=== PATIENT | female | born 1975 | race Two or more races ===

== ENCOUNTER 2019-08-26 12:08 | Day surgery (SDC) | payer BC ==
[2019-08-24 12:56] LABS: Basophils # (auto) 0.1 uL; Basophils % (auto) 1.3 % (0.0-2.0); Eosinophils # (auto) 0.2 uL; Eosinophils % (auto) 1.9 % (0.0-7.0); Hematocrit 41.4 % (36.0-46.0); Hemoglobin 14.2 g/dL (12.2-16.2); Lymphocytes # (auto) 1.2 uL; Lymphocytes % (auto) 14.6 % (10.0-50.0); Mean Corpuscular Hemoglobin 30.3 pg (28.0-32.0); Mean Corpuscular Hgb Conc. 34.3 g/dL (32.0-36.0); Mean Corpuscular Volume 88.4 fL (80.0-100.0); Monocytes # (auto) 0.6 uL; Monocytes % (auto) 7.2 % (0.0-12.0); Neutrophils # (auto) 6.2 uL; Platelet Count (auto) 278 10^3/uL (140-450); Red Blood Cells 4.68 10^6/uL (4.0-5.20); Red Cell Distribution Width 14.1 % (11.8-14.3); White Blood Cell 8.2 10^3/uL (4.4-10.8)
[2019-08-24 13:00] LABS: Urine Bacteria NONE SEEN /hpf (None Seen); Urine Blood 1+ /uL (Negative); Urine Mucus FEW (None Seen); Urine Specific Gravity 1.021 (1.001-1.035); Urine WBC 1 /hpf (0 - 5)
[2019-08-24 13:12] LABS: INR 0.95 (0.9-1.15); Partial Thromboplastin Time 27.9 sec (23.64-32.05)
[2019-08-24 13:28] LABS: Albumin 3.8 g/dL (3.4-5.0); BUN/Creatinine Ratio 22.9; Calcium 8.8 mg/dL (8.5-10.1); Potassium 3.8 mmol/L (3.5-5.1)
[2019-08-24 13:31] LABS: Bilirubin, Total 0.7 mg/dL (0.2-1.0); Total Protein 7.3 g/dL (6.4-8.2)
[~2019-08-26] VITALS: Ht 157.5 cm; Wt 69.4 kg
[~2019-08-26 12:08] MED LIST: SUMA100T15 PO
[2019-08-26] MEDS ORDERED: MORPHINE SULFATE 4 MG/ML SYR/VIAL IV PRN (13:30)
[2019-08-26] MEDS ORDERED: KETOROLAC TROMETH 30 MG/ML 1ML VIAL IV ONE (13:30)
[2019-08-26] MEDS ORDERED: LABETALOL HCL 5 MG/ML 4ML SYRINGE IV PRN (13:30)
[2019-08-26] MEDS ORDERED: ePHEDrine SULFATE 50 MG/ML AMP IV PRN (13:30)
[2019-08-26] MEDS ORDERED: HYDROmorphone HCL 2 MG/ML VL IV PRN (13:30)
[2019-08-26] MEDS ORDERED: MIDAZOLAM HCL 1MG/1ML-2 ML VIAL IV PRN (13:30)
[2019-08-26] MEDS ORDERED: ONDANSETRON HCL 4 MG/2 ML VIAL IV PRN (13:30)
[2019-08-26] MEDS ORDERED: CLINDAMYCIN 600MG IV 50 ML IV ONE (13:33)
[2019-08-26] MEDS ORDERED: MEPERIDINE HCL (25 MG/ML) 1ML VIAL ONE (13:37)
[2019-08-26] MEDS ORDERED: MIDAZOLAM HCL 1MG/1ML-2 ML VIAL ONE (13:38)
[2019-08-26] MEDS ORDERED: fentaNYL CITRATE 100 MCG/2 ML VL ONE (13:38)
[2019-08-26] MEDS ORDERED: PROPOFOL 10 MG/ML 20 ML IV ONE (14:01)
[2019-08-26] MEDS ORDERED: DexAMETHasone SOD PHOS 10MG/1ML VIAL INJ ONE (14:01)
[2019-08-26 14:56] VITALS: BP 120/73
== END 2019-08-26 15:10 | disposition home or self-care (01) ==
LOC: SUR 12:08
PROVIDERS: ATTEND Obstetrics & Gynecology
DX: N92.5 Other specified irregular menstruation (principal); N87.0 Mild cervical dysplasia; G43.909 Migraine, unspecified, not intractable, without status migrainosus; D64.9 Anemia, unspecified; Z79.899 Other long term (current) drug therapy
CPT/HCPCS: 36415; 58563; 80053; 81001; 84702; 85025; 85610; 85730; 86850; 86900; 86901; 87086; 87088; 87186; 88305; J1100; J2175; J2250; J2704; J3010; J3490

== ENCOUNTER 2020-06-05 06:37 | Inpatient (IN) | payer BC ==
[2020-05-31 11:51] LABS: Urine WBC None Seen /hpf (0 - 5)
[2020-05-31 11:58] LABS: Basophils # (auto) 0.1 10 ^3/uL (0-0.2); Basophils % (auto) 1.3 % (0.0-2.0); Eosinophils # (auto) 0.1 10 ^3/uL (0-0.8); Eosinophils % (auto) 2.3 % (0.0-7.0); Hematocrit 43.1 % (36.0-46.0); Hemoglobin 14.5 g/dL (12.2-16.2); Lymphocytes # (auto) 1.3 10 ^3/uL (0.4-5.4); Lymphocytes % (auto) 20.3 % (10.0-50.0); Mean Corpuscular Hemoglobin 29.8 pg (28.0-32.0); Mean Corpuscular Hgb Conc. 33.5 g/dL (32.0-36.0); Mean Corpuscular Volume 88.9 fL (80.0-100.0); Monocytes # (auto) 0.4 10 ^3/uL (0-1.3); Monocytes % (auto) 6.7 % (0.0-12.0); Neutrophils # (auto) 4.5 10 ^3/uL (1.6-8.6); Neutrophils % (auto) 69.4 % (37.0-80.0); Platelet Count (auto) 294 10^3/uL (140-450); Red Blood Cells 4.85 10^6/uL (4.0-5.20); Red Cell Distribution Width 14.3 % (11.8-14.3); White Blood Cell 6.5 10^3/uL (4.4-10.8)
[2020-05-31 12:02] LABS: Urine Bacteria NONE SEEN /hpf (None Seen); Urine Blood Negative /uL (Negative); Urine Specific Gravity 1.023 (1.001-1.035)
[2020-05-31 12:19] LABS: INR 0.96 (0.9-1.15)
[2020-05-31 12:50] LABS: Albumin 3.9 g/dL (3.4-5.0); Calcium 8.8 mg/dL (8.5-10.1); Potassium 3.9 mmol/L (3.5-5.1)
[2020-05-31 12:53] LABS: BUN/Creatinine Ratio 43.8; Bilirubin, Total 0.4 mg/dL (0.2-1.0); Total Protein 7.5 g/dL (6.4-8.2)
[~2020-06-05] VITALS: Ht 157.5 cm; Wt 76.5 kg
[2020-06-05] MEDS ORDERED: SUCCINYLCHOLINE CHLORIDE 20 MG/ML 10ML VIAL IV ONE (07:08)
[2020-06-05] MEDS ORDERED: LIDOCAINE 1% HCL (LOCAL ANESTH.) INJ 20ML MDV ONE (07:08)
[2020-06-05] MEDS ORDERED: fentaNYL CITRATE 100 MCG/2 ML VL ONE (07:21)
[2020-06-05] MEDS ORDERED: MIDAZOLAM HCL 1MG/1ML-2 ML VIAL ONE (07:21)
[2020-06-05] MEDS ORDERED: GLYCOPYRROLATE 0.2 MG/ML 1ML VIAL ONE (07:21)
[2020-06-05] MEDS ORDERED: PROPOFOL 10 MG/ML 20 ML IV ONE (07:21)
[2020-06-05] MEDS ORDERED: NEOSTIGMINE 1 MG/ML INJ (10mg/10ML VIAL) ONE (07:21)
[2020-06-05] MEDS ORDERED: hydrALAZINE HCL 20 MG/ML VL ONE (07:21)
[2020-06-05] MEDS ORDERED: KETOROLAC TROMETH 60MG/2ML VIAL ONE (07:21)
[2020-06-05] MEDS ORDERED: fentaNYL CITRATE 5 ML ONE (07:21)
[2020-06-05] MEDS ORDERED: HYDROmorphone HCL 2 MG/ML VL ONE ×2 (07:21→12:33)
[2020-06-05] MEDS ORDERED: ONDANSETRON HCL 4 MG/2 ML VIAL ONE (07:21)
[2020-06-05] MEDS ORDERED: SODIUM CHLORIDE LOCK 10 ML ONE (07:21)
[2020-06-05] MEDS ORDERED: LIDOCAINE W/ EPINEPHRINE 1 % INJ 30ML ONE (07:29)
[2020-06-05] MEDS ORDERED: BUPIVACAINE 0.25% INJ 50ML VIAL ONE (07:29)
[2020-06-05] MEDS ORDERED: METHYLENE BLUE 0.5% 5MG/ML 10ml AMP IV ONE (07:29)
[2020-06-05] MEDS ORDERED: ceFAZolin 1GM/50ML 50 ML IV ONE ×2 (07:32→08:00)
[2020-06-05] MEDS ORDERED: NITROGLYCERIN 0.4 MG SL TAB SL PRN (08:00)
[2020-06-05] MEDS ORDERED: MORPHINE SULF INJ 2 MG/ML SYRINGE 1ML IV PRN (08:00)
[2020-06-05] MEDS ORDERED: METOCLOPRAMIDE HCL 5MG/ml INJ 2ml VIAL IV PRN (08:00)
[2020-06-05] MEDS ORDERED: ONDANSETRON HCL 4 MG/2 ML VIAL IV PRN (08:00)
[2020-06-05] MEDS ORDERED: ACETAMINOPHEN 500 MG TAB PO PRN (08:00)
[2020-06-05] MEDS ORDERED: fentaNYL CITRATE 100 MCG/2 ML VL IV PRN (08:00)
[2020-06-05] MEDS ORDERED: KETOROLAC TROMETH 30 MG/ML 1ML VIAL IV ONE (08:00)
[2020-06-05] MEDS ORDERED: MORPHINE SULFATE 4 MG/ML SYR/VIAL IV PRN ×2 (08:00)
[2020-06-05] MEDS: SODIUM CHLORIDE 0.9% 1,000 ML IV SCH ×3 (11:30→23:51)
[2020-06-05] MEDS: HYDROmorphone HCL 2 MG/ML VL IV PRN ×2 (12:35→14:36)
--- NOTE | 2020-06-05 15:13 | NUR ---
[facility] admit from ER MARIA HENDERSON admitted to [facility] after SBAR received. Patient oriented to Gilma Michaud primary RN, unit, room, bed, and unit policies regarding patient care and visiting hours. Patient weighed by bed scale. Instructed patient on POC, fall precautions and to call for assistance as needed. Patient verbalized understanding. Abdominal binder in place per MD order. (x5) dressings in place. (x3) drainage outlined. Fall precautions in place with call light within reach.
--- NOTE | 2020-06-05 15:30 | NUR ---
SCD's in place per MD order.
--- NOTE | 2020-06-05 15:30 | NUR ---
Incentive Spirometer placed at bedside Education on proper use provided. Patient verbalized understanding. Patient able to demonstrate proper use of IS.
[2020-06-05 16:09] VITALS: BP 119/77
[2020-06-05] MEDS: HYDROcodone-ACET 10/325MG TAB PO PRN ×2 (18:02→23:54)
--- NOTE | 2020-06-05 18:38 | NUR ---
Closing note Patient resting in bed with even and unlabored respirations, no distress noted. Fall precautions in place with call light within reach.
--- NOTE | 2020-06-05 19:12 | NUR ---
Care endorsed to JORDY Enamorado.
--- NOTE | 2020-06-05 19:30 | NUR ---
Opening Shift Note Assumed care of patient, awake and alert. No S/S of distress/SOB. Minimal vaginal bleeding noted. Pt instructed to notify this RN if excessive bleeding or large clots occur. Pt verbalized understanding. Safety measures in place, bed in lowest position, bed rails raised x2, call light within reach, guard at bedside. Instructed on POC and to call for assist PRN, will continue to monitor for changes Q1hr and PRN.
[2020-06-05 22:00] VITALS: BP 137/82
--- NOTE | 2020-06-05 22:20 | NUR ---
Pt requesting to ambulate. Pt assisted out of bed and into hallway, no S/S of dizziness, bleeding or pain noted. Pt states that she feels stable enough to walk. This RN walked with pt around nurses station twice to assure safety. Pt requesting to continue ambulating. Pt instructed to call out if feeling dizzy or fatigued while ambulating. Pt verbalized understanding. Pt encouraged to ambulate as much as tolerated. Will continue to monitor.
[2020-06-06 00:27] VITALS: BP 129/82
[2020-06-06 05:00] VITALS: BP 127/77
[2020-06-06] MEDS: SODIUM CHLORIDE 0.9% 1,000 ML IV SCH ×2 (07:51→15:51)
[2020-06-06 08:00] VITALS: BP 129/82
[2020-06-06 09:00] VITALS: BP 129/82
[2020-06-06 13:00] VITALS: BP_SYST 112; BP_SYST 133; BP_DIAS 72; BP_DIAS 85
--- NOTE | 2020-06-06 16:15 | NUR ---
Discharge instructions given as ordered. Encourage to follow up with PMD as instructed on Jun 20 @ 10:45AM. All questions and concerns addressed. Patient verbalized understanding. Medication reconciliation form completed and copy given to patient. No home medications held in Pharmacy, and no needed vaccines given, patient declined. IV removed with catheter intact and pressure dressing applied. Patient medications already filled and at home. Patient taken to vehicle via wheelchair with all personal belongings, accompanied by staff member. No distress noted at time of departure.
== END 2020-06-06 16:15 | disposition home or self-care (01) | DRG 743 ==
LOC: SUR 06:37 → CENTRAL 15:22
PROVIDERS: ADMIT Obstetrics & Gynecology; ATTEND Obstetrics & Gynecology
PROC: 0UT74ZZ Resection of Bilateral Fallopian Tubes, Percutaneous Endoscopic Approach (ICD-10-PCS; 2020-06-05)
PROC: 0UT24ZZ Resection of Bilateral Ovaries, Percutaneous Endoscopic Approach (ICD-10-PCS; 2020-06-05)
PROC: 0USG4ZZ Reposition Vagina, Percutaneous Endoscopic Approach (ICD-10-PCS; 2020-06-05)
PROC: 8E0W4CZ Robotic Assisted Procedure of Trunk Region, Percutaneous Endoscopic Approach (ICD-10-PCS; 2020-06-05)
PROC: 0UT94ZL Resection of Uterus, Supracervical, Percutaneous Endoscopic Approach (ICD-10-PCS; principal; 2020-06-05 08:20)
DX: N81.4 Uterovaginal prolapse, unspecified (principal); N80.0 Endometriosis of uterus; N73.6 Female pelvic peritoneal adhesions (postinfective); E66.9 Obesity, unspecified; Z20.828 Contact with and (suspected) exposure to other viral communicable diseases; Z88.2 Allergy status to sulfonamides; Z88.8 Allergy status to other drugs, medicaments and biological substances; Z68.29 Body mass index [BMI] 29.0-29.9, adult; Z79.899 Other long term (current) drug therapy
CPT/HCPCS: 36415; 80053; 81001; 84702; 85025; 85610; 85730; 86850; 86900; 86901; 87086; G0378; J0330; J0690; J1885; J2001; J2250; J2405; J2704; J3490